=== PATIENT | female | born 1945 | race Hispanic/Latino ===

== ENCOUNTER 2024-02-28 13:10 | Emergency (ER) | payer SELFPAY ==
[2024-02-29 02:14] LABS: Anion Gap 14 mmol/L (10-20); Carbon Dioxide 25 mmol/L (23-31); Chloride 104 mmol/L (98-107); Sodium 139 mmol/L (136-145); Troponin I 0.017 ng/mL (< 0.028)
[2024-02-29 02:15] LABS: ALT (SGPT) 18 U/L (8-55); AST (SGOT) 21 U/L (5-34); Albumin 3.9 g/dL (3.4-4.8); Alkaline Phosphatase 117 U/L (40-110); BUN (Urea Nitrogen) 17 mg/dL (9.8-20.1); Bilirubin, Total 0.6 mg/dL (0.2-1.2); Calc. Creatinine Clearance 0 mL/min (70-130); Calcium 10.1 mg/dL (7.6-10.4); Estimated GFR 70; Globulin 3.4 g/dL (2.4-3.5); Glucose 118 mg/dL (83-110); Magnesium 2.1 mg/dL (1.6-2.6); Protein, Total 7.3 g/dL (5.8-8.1)
[2024-02-29 10:24] LABS: White Blood Cell (WBC) Count 9.4 10x3/uL (4.8-10.8)
[2024-02-29 10:25] LABS: Band 2 % (5-11); Hematocrit 43.8 % (36.0-47.0); Hemoglobin 14.1 g/dL (12.0-16.0); MDiff Complete? YES; Manual Diff?? YES; Mean Corpuscular HGB CONC 32.2 g/dL (32.0-36.0); Mean Corpuscular Hemoglobin 30.7 pg (27.0-31.0); Mean Corpuscular Volume 95.3 fl (78.0-98.0); Mean Platelet Volume 8.3 fL (7.4-10.4); Neutrophil 83 % (42-75); Platelet Count 201 10x3/uL (130-400); RBC Distribution Width 13.2 % (11.5-14.5)
[2024-02-29 10:26] LABS: Eosinophils 2 % (0-10); Lymphocytes 6 % (21-51); Monocytes 3 % (0-10); Platelet Adequacy Comment Appears Adequate; RBC Morph Comment Within Normal Limits; Reactive Lymphocytes 4 % (0-10)
== END 2024-02-28 15:30 ==
LOC: MADERS 13:10
DX: R55 Syncope and collapse (principal); S00.03XA Contusion of scalp, initial encounter; S09.90XA Unspecified injury of head, initial encounter; E11.9 Type 2 diabetes mellitus without complications; I10 Essential (primary) hypertension; W22.8XXA Striking against or struck by other objects, initial encounter; Z79.899 Other long term (current) drug therapy
CPT/HCPCS: 36415; 70450; 72125; 80053; 83735; 84484; 85025; 96374